=== PATIENT | female | born 1970 | race Caucasian/White ===

== ENCOUNTER 2021-09-01 14:12 | Outpatient (CLI) | payer BC | END 2021-09-01 14:13 | disposition home or self-care (01) | LOC: CSHMAMMO 14:12 | PROVIDERS: ATTEND Family Medicine | DX: Z12.31 Encounter for screening mammogram for malignant neoplasm of breast (principal); Z13.820 Encounter for screening for osteoporosis; R93.7 Abnormal findings on diagnostic imaging of other parts of musculoskeletal system; Z80.3 Family history of malignant neoplasm of breast | CPT/HCPCS: 77063; 77067; 77080 ==

== ENCOUNTER 2021-12-15 13:10 | Outpatient (CLI) | payer BC | END 2021-12-15 13:11 | disposition home or self-care (01) | LOC: CSHMRI 13:10 | PROVIDERS: ATTEND Orthopaedic Surgery | DX: M24.152 Other articular cartilage disorders, left hip (principal); S73.192A Other sprain of left hip, initial encounter ==